=== PATIENT | male | born 1975 | race Hispanic/Latino ===

== ENCOUNTER 2019-07-02 20:18 | Emergency (ER) | payer OTHER, SELFPAY ==
[2019-07-02 20:27] VITALS: BP 145/98; PULSE 93; RESP 20; TEMP 36.9; O2SAT 99; BMI 40.2
--- NOTE | 2019-07-02 20:40 | DI.RAD.S_ITS ---
PROCEDURE: XR CHEST 1V INDICATIONS: Chest pain TECHNIQUE: One view of the chest was acquired. COMPARISON: None. FINDINGS: Surgical changes and devices: None. Lungs and pleura: Lungs are clear. No pleural effusions or pneumothorax. Mediastinum: Mediastinal contours appear normal. Heart size is normal. Bones and chest wall: No suspicious bony lesions. Overlying soft tissues appear unremarkable. IMPRESSION: No acute disease Dictated by: Donavan Cano M.D. on 07/02/2019 at 21:06 Approved by: Donavan Cano M.D. on 07/02/2019 at 21:08
[2019-07-02] MEDS: LORazepam 0.5 MG TABLET PO (20:46)
--- NOTE | 2019-07-02 20:46 | ED.CHESTPAIN ---
HPI - Chest Pain General Chief Complaint: Chest Pain Stated Complaint: chest pressure, fear, nausea, emotional Time Seen by Provider: 07/02/19 20:20 Source: patient and family Mode of arrival: Ambulatory Limitations: no limitations History of Present Illness HPI narrative: 44-year-old male here for evaluation of anxiety, feeling of fear, left-sided chest discomfort, he stated that his symptoms started approximately 1 week ago. He does remember a specific incident related to his where he became angry and very anxious. It lasted approximately 24 hours but then went away. The past couple days he has not had any symptoms but then it started again today. He states he does feel anxious. Prior to 1 week ago he has never had a history of anxiety. Has not tried anything for symptoms prior to arrival Related Data Previous Rx's Medication Instructions Recorded lorazepam [Ativan] 0.5 mg PO TID PRN #14 tab 07/02/19 Allergies Allergy/AdvReac Type Severity Reaction Status Date / Time No Known Drug Allergies Allergy Verified 07/02/19 20:47 Review of Systems Constitutional Constitutional: Denies fever(s) Cardiovascular Cardiovascular: Reports chest pain and Denies dyspnea Respiratory Respiratory: Denies cough and Denies dyspnea Gastrointestinal Gastrointestinal: Denies abdominal pain, Denies nausea and Denies vomiting Musculoskeletal Musculoskeletal: Denies myalgias, Denies arthralgias and Reports tingling Integumentary/Breasts Skin/Breast: Denies lesions and Denies rash Neurologic Neurologic: Reports tingling Psychiatric Psychiatric: Reports anxiety, Denies depression, Reports irritability, Reports panic attacks, Denies visual hallucinations, Denies homicidal ideation and Denies suicidal ideation Hematologic/Lymphatic Hematologic/Lymphatic: Denies easy bleeding and Denies easy bruising Patient History Medical History High cholesterol (Acute) Social History Smoking Status: Never smoker Smoking Status: Never smoker alcohol intake frequency: a few times a week Alcohol type: beer and wine Substance Use Type: does not use Exam Initial Vital Signs Initial Vital Signs: Vital Signs Temperature 98.5 F 07/02/19 20:27 Pulse Rate 93 H 07/02/19 20:27 Respiratory Rate 20 07/02/19 20:27 Blood Pressure 145/98 H 07/02/19 20:27 Pulse Oximetry 99 12/21/19 20:27 Const General: cooperative, healthy appearing, comfortable and well developed Orientation: alert, awake and oriented x3 HENMT Head: normal to inspection and normocephalic Resp Effort & Inspection: normal respiratory effort Auscultation: clear to auscultation bilaterally Cardio Rate: regular rate Rhythm: regular rhythm Skin Lesions: no lesions Rashes: no rashes Neuro General: alert, awake and oriented x3 Cognition: normal cognition Speech: speech normal Gait: normal gait Motor: muscle tone normal throughout Extrem General: normal to inspection and capillary refill normal Psych Appearance: grossly normal and well kempt Mental Status: mental status grossly normal Speech and Movement: speech and movement normal Mood: congruent mood Affect: normal affect Attitude: cooperative Thought Process: normal Thought Content: normal Judgment: judgment good Scores HEART Score Heart Score history: Slightly Suspicious Heart Score EKG: Normal Heart Score Age: < 45 years old Heart Score risk factors: 1-2 risk factors Heart Score troponin: < or = to normal limit Heart Score Total: 1 Course Orders Ordered: ED Orders 07/02/19 20:21 EKG-12 Lead Stat 07/02/19 20:30 Basic Metabolic Panel Stat Complete Blood Count AUTO DIFF Stat Troponin I Stat 07/02/19 20:40 XR chest 1V Stat Discontinued Medications Lorazepam (Ativan) 0.5 mg PO NOW ONE Stop: 07/02/19 20:40 Last Admin: 07/02/19 20:46 Dose: 0.5 mg Documented by: CEDRIC Vital Signs Vital signs: Vital Signs - 8 hr 07/02/19 20:27 07/02/19 21:10 Temperature 98.5 F Pulse Rate 93 H 86 Respiratory Rate 20 15 Blood Pressure 145/98 H Blood Pressure [Right Arm] 138/84 Pulse Oximetry 99 98 MDM - Chest Pain Lab Data Attestation: I reviewed the patient's lab results. Result diagrams: 07/02/19 20:30 07/02/19 20:30 Labs: Lab Results 07/02/19 07/02/19 Range/Units 20:30 20:30 WBC 8.7 (4.5-11.0) X10^3/uL RBC 4.43 L (4.5-5.9) X10^6/uL Hgb 14.5 (13.5-17.5) g/dL Hct 40.8 L (41-53) % MCV 92.0 (80-100) fL MCH 32.6 (26-34) PG MCHC 35.5 (30-36) % RDW 12.9 (11.6-14.8) % Plt Count 273 (150-400) X10^3/uL Neut % (Auto) 66.5 (50-75) % Lymph % (Auto) 25.8 (25-40) % [place] % (Auto) 6.1 (3-14) % Eos % (Auto) 0.9 L (2-4) % Baso % (Auto) 0.7 (0-2) % Neut # (Auto) 5800 (3769-6733) /uL Lymph # (Auto) 2200 (3566-2083) /uL [place] # (Auto) 500 (0-900) /uL Eos # (Auto) 100 (0-450) /uL Baso # (Auto) 100 (0-100) /uL Sodium 141 (137-145) mmol/L Potassium 3.7 (3.4-5.1) mmol/L Chloride 104 (98-107) mmol/L Carbon Dioxide 25 (22-32) mmol/L BUN 13 (9-20) mg/dL Creatinine 0.80 (0.66-1.25) mg/dL Estimated GFR > 60.0 (>60) mL/min BUN/Creatinine Ratio 16.3 (6-22) Glucose 126 H (70-100) mg/dL Calcium 9.7 (8.4-10.2) mg/dL Troponin I < 0.012 (0.01-0.034) ng/mL Imaging Data Chest x-ray: Radiologist's impression: [address] [address] XRay Report Signed Patient: Shukri Ordonez#: [id number] : 1975Acct:[id number] Age/Sex: 44 / MDate of Service: 07/02/19 Loc: ED Accession Number: [id number] Procedure: XR chest 1V Ordering Provider: Janes Foley D.O. PROCEDURE: XR CHEST 1V INDICATIONS: Chest pain TECHNIQUE: One view of the chest was acquired. COMPARISON: None. FINDINGS: Surgical changes and devices: None. Lungs and pleura: Lungs are clear. No pleural effusions or pneumothorax. Mediastinum: Mediastinal contours appear normal. Heart size is normal. Bones and chest wall: No suspicious bony lesions. Overlying soft tissues appear unremarkable. IMPRESSION: No acute disease Dictated by: Donavan aCno M.D. on 07/02/2019 at 21:06 Approved by: Donavan Cano M.D. on 07/02/2019 at 21:08 ECG Data Attestation: I personally reviewed and interpreted this ECG as follows: Prior ECG tracings: not available for review Interpretation: Sinus rhythm Ventricular rate 80 Normal axis Normal QRS Normal QTC No ST T wave changes MDM Narrative Medical decision making narrative: Low risk heart score, EKG is unremarkable, chest x-ray is unremarkable, troponin is negative. I do have a high suspicion that his symptoms are related to anxiety/panic attacks. He does know what his triggering his symptoms. He has an appoint with his primary doctor at the beginning of the year. Feel somewhat better after the Ativan here in the ER. Was sent home with a prescription for this. He was given other resource that he could use. He was given return precautions and follow-up instructions. He expressed understanding and agreement with plan. Discharge Plan Departure Patient Disposition: Home Clinical Impression: Atypical chest pain, Anxiety, Panic attack Discharge Date/Time: 07/02/19 21:36 Instructions: Anxiety and Panic Attacks (Alternative Therapy), DI for Atypical Chest Pain Activity Restrictions/Additional Instructions: Recommend that you keep your scheduled follow-up appointment with your primary provider. You can also use resources such as the [employer] or in the [employer] web sites. These may be helpful. Return to the emergency department for any new or worsening symptoms Prescriptions: New lorazepam [Ativan] 1 mg tablet 0.5 mg PO TID PRN (Reason: anxiety) Qty: 14 RF: 0
[2019-07-02 20:47] LABS: Add Manual Diff / Slide Review NO; Basophils Absolute Auto 100 /uL (0-100); Basophils Percent Auto 0.7 % (0-2); Eosinophils Absolute Auto 100 /uL (0-450); Eosinophils Percent Auto 0.9 % (2-4); Hematocrit 40.8 % (41-53); Hemoglobin 14.5 g/dL (13.5-17.5); Lymphocytes Absolute Auto 2200 /uL (1100-4500); Lymphocytes Percent Auto 25.8 % (25-40); Mean Corpuscular HGB Conc 35.5 % (30-36); Mean Corpuscular Hemoglobin 32.6 PG (26-34); Monocytes Absolute Auto 500 /uL (0-900); Monocytes Percent Auto 6.1 % (3-14); Neutrophils Absolute Auto 5800 /uL (1500-7000); Neutrophils Percent Auto 66.5 % (50-75); Platelet Count 273 X10^3/uL (150-400); Red Blood Cell Count 4.43 X10^6/uL (4.5-5.9); Red Cell Distribution Width 12.9 % (11.6-14.8); White Blood Cell Count 8.7 X10^3/uL (4.5-11.0)
[2019-07-02 20:51] LABS: BUN Creatinine Ratio 16.3 (6-22); Blood Urea Nitrogen 13 mg/dL (9-20); Calcium 9.7 mg/dL (8.4-10.2); Carbon Dioxide 25 mmol/L (22-32); Chloride 104 mmol/L (98-107); Estimated Glomerular Filt Rate > 60.0 mL/min (>60); Glucose 126 mg/dL (70-100); HEMOLYSIS < 15 (0-50); Potassium 3.7 mmol/L (3.4-5.1); Sodium 141 mmol/L (137-145)
[2019-07-02 21:03] LABS: Troponin I < 0.012 ng/mL (0.01-0.034)
[2019-07-02 21:10] VITALS: BP 138/84; PULSE 86; RESP 15; O2SAT 98
== END 2019-07-02 21:36 | disposition home or self-care (01) ==
PROVIDERS: Emergency Provider Emergency Medicine
DX: F41.9 Anxiety disorder, unspecified (principal); R07.89 Other chest pain; F41.0 Panic disorder [episodic paroxysmal anxiety]
CPT/HCPCS: 36415; 71045; 80048; 84484; 85025; 93005; 99284; 99285